=== PATIENT | female | born 1950 | race Caucasian/White ===

== ENCOUNTER 2017-03-21 14:23 | Outpatient (CLI) | payer OTHER ==
--- NOTE | 2017-03-21 16:17 | DIAGNOSTIC IMAGING REPORT ---
PROCEDURE: MG BILATERAL SCREENING W/CAD INDICATION: Screening, personal history of bladder cancer TECHNIQUE: Standard CC and MLO views bilaterally. Computer aided detection was used. COMPARISON: 03/08/2016, 02/10/2015, 02/14/2014 FINDINGS: Dense fibroglandular tissue is present bilaterally. No developing densities, areas of architectural distortion, or suspicious microcalcifications. IMPRESSION: 1. Stable mammograms without radiographic evidence of malignancy. RESULT CODE: 1- Negative. A. A negative report should not delay biopsy if a dominant or clinically suspicious mass is present. 10-15% of cancers are not identified by x-ray. B. A negative report may reinforce clinical impression. C. Adenosis and dense breasts may obscure an underlying neoplasm. D. False positive reports average 6-10%. E.. A yearly screening mammogram is recommended. A reminder letter will be scheduled.
== END 2017-03-22 16:00 | disposition home or self-care (01) ==
LOC: MAM SRH 14:23
DX: Z12.31 Encounter for screening mammogram for malignant neoplasm of breast (principal); Z85.51 Personal history of malignant neoplasm of bladder